=== PATIENT | female | born 1995 | race Caucasian/White ===

== ENCOUNTER → 2017-04-07 | Outpatient (CLI) | payer OTHER | END | disposition home or self-care (01) | LOC: C.MAMM 13:57 | PROVIDERS: ATTEND Internal Medicine | DX: N91.2 Amenorrhea, unspecified (principal) ==

== ENCOUNTER 2018-10-10 13:55 | Inpatient (IN) ==
[2018-10-10] MEDS ORDERED: SODIUM CHLORIDE 0.9% 1000ML 1,000 ML IV ONE (14:10)
[2018-10-10] MEDS ORDERED: KETOROLAC TROMETHAMINE 15 MG/ML VIAL IV STA (14:15)
[2018-10-10 14:56] LABS: Basophils # (auto) 0.06 K/uL (0-0.2); Basophils % (auto) 1.1 %; Eosinophils # (auto) 0.13 K/uL (0-0.5); Eosinophils % (auto) 2.3 %; Hematocrit (blood only) 39.7 % (37-47); Hemoglobin 13.8 g/dL (12.0-16.0); Immature Granulocytes # (auto) 0.02 K/uL (0.00-0.02); Immature Granulocytes % (auto) 0.4 %; Lymphocytes # (auto) 1.71 K/uL (1.2-3.4); Lymphocytes % (auto) 30.6 %; Mean Corpuscular Hemoglobin 30.3 pg (25-34); Mean Corpuscular Hgb Conc 34.8 g/dL (32-36); Mean Corpuscular Volume 87.1 fL (80-100); Mean Platelet Volume 10.7 fL (7.4-10.4); Monocytes # (auto) 0.35 K/uL (0.11-0.59); Monocytes % (auto) 6.3 %; Neutrophils # (auto) 3.32 K/uL (1.4-6.5); Neutrophils % (auto) 59.3 %; Platelet Count 208 K/uL (130-400); RDW Coefficient of Variation 12.3 % (11.5-14.5); RDW Standard Deviation 39.1 fL (36.4-46.3); Red Blood Count 4.56 M/uL (4.2-5.4); White Blood Count 5.59 K/uL (4.8-10.8)
[2018-10-10 15:00] LABS: Appearance Urine Clear (Clear); Bilirubin Urine Negative (Negative); Blood Urine Negative (Negative); Color Urine Yellow; Glucose Urine UA Negative (Negative); Ketones Urine Negative (Negative); Leukocyte Esterase Urine Negative (Negative); Nitrite Urine Negative (Negative); Protein Urine Negative (Negative); Specific Gravity Urine 1.013 (1.000-1.030); Urobilinogen Urine Negative (Negative); pH Urine 6.5 (4.5-7.5)
[2018-10-10 15:10] LABS: Pregnancy Test, Serum Negative (Negative)
[2018-10-10 15:13] LABS: Albumin Level 3.4 gm/dl (3.4-5.0); BUN Creatinine Ratio 13.2 (10-20); Est GFR (African American) 138.7; Est GFR (Non-African American) 119.7; Potassium 3.8 mmol/L (3.5-5.1)
[2018-10-10 15:16] LABS: Albumin Globulin Ratio 0.8 (0.9-2); Bilirubin,Total 0.5 mg/dl (0.2-1); Globulin 4.3 gm/dl (2.5-4.0); Total Protein 7.7 gm/dl (6.4-8.2)
[2018-10-10] MEDS ORDERED: IOVERSOL 100ml IV PRN (15:29)
--- NOTE | 2018-10-10 15:38 | CT Scan Report ---
CT abd pelvis IV con only CLINICAL HISTORY: 23 years-old Female presenting with RLQ pain, nausea, fevers. TECHNIQUE: Multidetector CT of the abdomen and pelvis was performed after the administration of intra venous contrast. IV contrast: 93 mL of Optiray 320. One or more dose lowering techniques were used co nsistent with the principles of ALARA (as low as reasonably achievable), including automatic exposure control, mA or kV adjustment to individual patient size, and/or use of iterative reconstruction. COMPARISON: None. CT DOSE (mGy.cm): The estimated cumulative dose is 248.66 mGy.cm. FINDINGS: Trustee Of Estate topogram: Unremarkable. Lung bases: Normal heart size. No pericardial or pleural effusion. No focal infiltrate or nodule at t he lung bases. Liver: Normal morphology. No liver lesion. Patent hepatic vasculature. Biliary: No intrahepatic or extrahepatic biliary ductal dilatation. Gallbladder decompressed. Pancreas: Normal. Spleen: Normal. Adrenal glands: Normal. Kidneys and ureters: Normal. No hydronephrosis. Bladder: Incompletely evaluated secondary to underdistention. Pelvic organs: Uterus and ovaries normal. Bowel: Fluid filled distended appendix with mucosal hyperemia. Periappendiceal fluid and fat infiltra tion. There is indistinctness of the appendiceal wall towards the appendiceal base. No well-circumscr ibed fluid collection adjacent to the appendix to suggest abscess. Mild wall thickening of the transi ting small bowel likely on a secondarily reactive basis. No bowel obstruction. Peritoneal cavity: Trace fluid in the pelvis and right lower quadrant. No rim-enhancing fluid collect ion to suggest abscess. Peritoneal thickening and enhancement in the right lower quadrant. No extralu chris or free intraperitoneal gas. Lymph nodes: No enlarged lymph nodes in the abdomen or pelvis. Vasculature: Aorta and IVC patent and normal in caliber. Abdominal wall: Normal. Musculoskeletal: Normal. IMPRESSION: 1. Acute appendicitis with moderate to severe right lower quadrant inflammatory changes. Findings al so suspicious for mucosal discontinuity toward the appendiceal base, which raises concern for wall ne crosis and a developing perforation. No abscess at this time. Surgical consultation is necessary. The report will be called/faxed according to standard departmental protocol for a critical finding. Electronically signed by: Medhat Shelby M.D. 10/10/2018 3:37 PM
[2018-10-10] MEDS ORDERED: cefOXitin 2,000 MG/60 ML BAG IV STA (16:26)
[2018-10-10] MEDS ORDERED: BUPIVACAINE 0.5 % 5 MG/1 ML MPF 30ML VIAL ONE (16:48)
--- NOTE | 2018-10-10 17:11 | Anesthesiology Consultation ---
Date of Service October 10, 2018 Assessment & Plan (1) Encounter for pre-operative examination: Chart Review Chart Review: Acceptable Risk for Surgery and Patient NOT seen in Pre Admission Testing Consults Requested none History Surgery Operation Date: 10/10/18 18:15 Proposed Procedures p Laparoscopic Appendectomy - Erin Hernandez MD Height/Weight Height: 5 ft 6 in Weight: 57.4 kg Allergies Allergy/AdvReac Type Severity Reaction Status Date / Time No Known Allergies Allergy Unverified 10/10/18 14:04 Medications Home Medications Medication Instructions Recorded Confirmed Last Taken albuterol sulfate 2 puff INHALATION DIRECTED PRN 10/10/18 10/10/18 Unknown buspirone 10 mg PO BID 10/10/18 10/10/18 10/10/18 fluticasone propionate [Flovent 2 puff INHALATION DIRECTED PRN 10/10/18 10/10/18 Unknown HFA] ibuprofen [Advil Liqui-Gel] 200 mg PO QID PRN 10/10/18 10/10/18 10/09/18 400mg norgestimate-ethinyl estradiol 1 tab PO QAM 10/10/18 10/10/18 10/10/18 [Tri-Sprintec (28)] Active Medications Generic Name Dose Route Start Last Admin Trade Name Freq PRN Reason Stop Dose Admin Ioversol 93 ml 10/10/18 15:29 10/10/18 15:29 Optiray 320 100ml IV 10/14/18 15:28 93 ml ONCE PRN Administration Interaction Checking Past Medical History Medical History Asthma Acute appendicitis (Acute) Anxiety Exercise / Class Metabolic Activity II 4-5 Yardwork/Stairs/Walk up hill Past Family History Family History Aunt Ovarian cyst Past Anesthesia History No Hx of Anesthesia Complications and No Family Hx of Anesthesia Complications History of PONV No Hx of PONV and No Hx of Motion Sickness Social History Smoking Status: Never smoker Do You Dip or Chew Tobacco: No Hx Alcohol Use: Yes alcohol intake frequency: a few times a week Physical Exam Vital Signs Last Vital Signs Temp 36.8 C 10/10/18 13:57 Pulse 70 08/31/19 18:00 Resp 19 10/10/18 18:00 BP 110/84 10/10/18 18:00 Pulse Ox 85 L 10/10/18 15:30 Testing Laboratory Results 10/10/18 Unknown 10/10/18 Unknown Urine Color Yellow 10/10/18 14:40 Urine Appearance Clear (Clear) 10/10/18 14:40 Urine pH 6.5 (4.5-7.5) 10/10/18 14:40 Ur Specific Schneider 1.013 (1.000-1.030) 10/10/18 14:40 Urine Protein Negative (Negative) 10/10/18 14:40 Urine Glucose (UA) Negative (Negative) 10/10/18 14:40 Urine Ketones Negative (Negative) 10/10/18 14:40 Urine Nitrite Negative (Negative) 10/10/18 14:40 Ur Leukocyte Esterase Negative (Negative) 10/10/18 14:40
--- NOTE | 2018-10-10 18:02 | History & Physical Report ---
Date of Service October 10, 2018 Assessment & Plan (1) Acute appendicitis: 23 yr old with acute appendicitis with CT scan suggesting possible perforation of tip. Consented for laparoscopic appendectomy - risks of bleeding, infection, conversion to open, postop ileus/ abscess all discussed with pt and her aunt. Also discussed expected recovery/ risks with parents via telephone. Consent signed. For OR tonight. Present on Admission?: Yes History of Present Illness Chief Complaint: abdominal pain Primary Care Provider: 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 Had some nausea and vomiting Fri/ . Seen and given antibiotics for presumed urinary infection. Pain persisted and localized to right lower quadrant, moderate intensity, worse with movement, no relieving factors except pain meds, associated with low grade fever to 100/ chills. Came to the ER and CT scan shows acute appendicitis. Last ate around 1:30 - did note anorexia over the last few days. No change in bowel habits. No similar symptoms in the past. Allergies Allergy/AdvReac Type Severity Reaction Status Date / Time No Known Allergies Allergy Unverified 10/10/18 14:04 Home Medications Home Medications Medication Instructions Recorded Confirmed Type albuterol sulfate 2 puff INHALATION DIRECTED PRN 10/10/18 10/10/18 History buspirone 10 mg PO BID 10/10/18 10/10/18 History fluticasone propionate [Flovent 2 puff INHALATION DIRECTED PRN 10/10/18 10/10/18 History HFA] ibuprofen [Advil Liqui-Gel] 200 mg PO QID PRN 10/10/18 10/10/18 History norgestimate-ethinyl estradiol 1 tab PO QAM 10/10/18 10/10/18 History [Tri-Sprintec (28)] Past Med/Surg History Medical History Asthma Acute appendicitis (Acute) Anxiety Family History Aunt Ovarian cyst Social History Preferred Language: Turkish Communication Ability: Effective Baseball Club Manager Required: No Beliefs That Will Affect Care: None Current Living Situation: Other Current Living Situation Comment: [employer] student, roommates Other Information That Helps Us Care for You: No Feels Safe at Home: Yes Safety Concerns: Feels Safe At This Time Smoking Status: Never smoker Do You Dip or Chew Tobacco: No ; Second Hand Exposure: No ; Tobacco Cessation Education Requested by Patient: No Hx Alcohol Use: Yes Hx Substance Use: Yes substance use type: marijuana Last Used Substance Other:: over 2 weeks ago Review of Systems Review of Systems: All systems reviewed & are unremarkable except as noted in HPI & below Physical Exam Constitutional: WD/WN, vitals as above Eyes: PERRL, conjunctivae normal, anicteric sclerae Neck: trachea midline Respiratory: normal respiratory effort, lungs clear to auscultation Cardiovascular: RRR, no murmur, no edema Gastrointestinal (Abdomen): Inspection/Auscultation: abdomen normal to inspection and + abdomen distended (mild) Percussion/Palpation: + abdomen tender (right lower quadrant,no guarding (but did recieve pain meds)) and abdomen soft; no guarding, no hernia and no abdominal mass Neurologic: moves all extremities Psychiatric: A+Ox3, euthymic affect Results & Data Vital Signs (Past 12 Hours) Vital Signs Temp Pulse Resp BP Pulse Ox 10/10/18 17:30 66 18 125/76 10/10/18 17:11 62 17 112/72 10/10/18 17:00 70 17 10/10/18 16:30 74 17 10/10/18 16:00 59 L 19 10/10/18 15:30 75 28 H 85 L 10/10/18 15:19 74 14 121/71 96 10/10/18 15:11 57 L 21 99/54 L 100 10/10/18 15:09 54 L 18 100 10/10/18 13:57 36.8 C 73 16 122/79 100 Laboratory Results CBC normal Diagnostic Findings CT scan abd/ pelvis: IMPRESSION: 1. Acute appendicitis with moderate to severe right lower quadrant inflammatory changes. Findings also suspicious for mucosal discontinuity toward the appendiceal base, which raises concern for wall necrosis and a developing perfor ation. No abscess at this time. Surgical consultation is necessary. (1) Acute appendicitis Acute appendicitis type: unspecified acute appendicitis type Qualified Code(s): K35.80 - Unspecified acute appendicitis
[2018-10-10] MEDS ORDERED: DEXAMETHASONE SOD INJ 4 MG/ML VIAL ONE (18:24)
[2018-10-10] MEDS ORDERED: SUCCINYLCHOLINE CHLORIDE 20 MG/ML 10 ML VIAL ONE (18:24)
[2018-10-10] MEDS ORDERED: PROPOFOL IV EMULSION 10 MG/ML 20 ML VIAL IV ONE (18:24)
[2018-10-10] MEDS ORDERED: NEOSTIGMINE METHYLSULFATE 5 MG/5 ML SYR ONE (18:24)
[2018-10-10] MEDS ORDERED: ONDANSETRON INJ 2 MG/ML 2 ML VIAL ONE (18:24)
[2018-10-10] MEDS ORDERED: GLYCOPYRROLATE 0.2 MG/ML VIAL ONE (18:24)
[2018-10-10] MEDS ORDERED: ROCURONIUM BROMIDE 10 MG/ML 5 ML VIAL ONE (18:24)
[2018-10-10] MEDS ORDERED: MIDAZOLAM HCL 1 MG/ML 2ML VIAL ONE (18:25)
[2018-10-10] MEDS ORDERED: fentaNYL citrate 100 MCG/2 ML VIAL ONE (18:25)
[2018-10-10] MEDS ORDERED: ePHEDrine sulfate 50 MG/ML AMP IV PRN (19:12)
[2018-10-10] MEDS ORDERED: HYDROmorphone INJ 1 MG/ML SYRINGE IV PRN (19:12)
[2018-10-10] MEDS ORDERED: ONDANSETRON INJ 2 MG/ML 2 ML VIAL IV PRN (19:12)
[2018-10-10] MEDS ORDERED: fentaNYL citrate 100 MCG/2 ML VIAL IV PRN (19:12)
[2018-10-10] MEDS ORDERED: ATROPINE SULFATE 0.1 MG/ML 10ML SYR IV PRN (19:12)
[2018-10-10] MEDS ORDERED: PROMETHAZINE HCL 12.5 MG in SODIUM CHLORIDE 0.9% 50 ML IV PRN (19:12)
--- NOTE | 2018-10-10 20:00 | Operative Report ---
Post Operative Report Pre & Post Diagnosis Operation Date: 10/10/18 18:15 Pre-Op Diagnosis: Acute appendicitis Post-Op Diagnosis: Acute appendicitis Procedure Operation Date: 10/10/18 18:15 Actual Procedures p Laparoscopic Appendectomy(Not Applicable) - Erin Hernandez MD Surgeon Erin Hernandez MD Cable Worker Helper none Estimated Blood Loss 5 Findings See Below (near gangrenous appendicitis walled off in RLQ by bowel/ omentum) Specimens appendix Description of Procedure see operative report I attest to the content of the Intraoperative Record and any orders documented therein. Any exceptions are noted below.
--- NOTE | 2018-10-10 20:10 | Anesthesiology Progress Note ---
Date of Service October 10, 2018 Anesthesia Post Procedure Vital Signs Vital Signs: Temp Pulse Resp BP Pulse Ox 10/10/18 18:00 70 19 110/84 10/10/18 17:30 66 18 125/76 10/10/18 17:11 62 17 112/72 10/10/18 17:00 70 17 10/10/18 16:30 74 17 10/10/18 16:00 59 L 19 10/10/18 15:30 75 28 H 85 L 10/10/18 15:19 74 14 121/71 96 10/10/18 15:11 57 L 21 99/54 L 100 10/10/18 15:09 54 L 18 100 10/10/18 13:57 36.8 C 73 16 122/79 100 Pain Intensity Abdomen: Pain Intensity: 4 Transfer of Care Handoff Completed per policy Notes Mental Status: alert / awake / arousable and participated in evaluation Patient Amnestic to Procedure: Yes Nausea / Vomiting: adequately controlled Pain: adequately controlled Airway Patency, RR, SpO2: stable & adequate BP & HR: stable & adequate Hydration State: stable & adequate Anesthetic Complications: no major complications apparent and Pt Satisfied with anesthetic care
--- NOTE | 2018-10-10 20:30 | Operative Report ---
DATE OF OPERATION: 10/10/2018 PREOPERATIVE DIAGNOSIS: Acute appendicitis. POSTOPERATIVE DIAGNOSIS: Acute near gangrenous appendicitis. OPERATIVE PROCEDURE: Laparoscopic appendectomy. SURGEON: Erin Hernandez MD. DRUG COORDINATOR: None. ANESTHESIA: General endotracheal anesthesia. ESTIMATED BLOOD LOSS: 5 mL. IV FLUIDS: 1100 mL. URINE OUTPUT: Not applicable. SPECIMENS: Appendix. COMPLICATIONS: None. OPERATIVE FINDINGS: Near gangrenous appendicitis walled off in right lower quadrant between anterior abdominal wall and loops of bowel and omentum. INDICATIONS: Ms. Vásquez is a 23-year-old woman who had abdominal pain going on for about a week. She was initially diagnosed with a urinary tract infection and treated with antibiotics. Her pain persisted and localized to the right lower quadrant. She came in to the Emergency Room and a CT scan showed marked inflammatory changes in the right lower quadrant. She was counseled regarding the need for appendectomy. DESCRIPTION OF PROCEDURE: The patient received cefoxitin preoperatively. After placement of sequential compression devices, she underwent induction of general endotracheal anesthesia. She was positioned with her left arm tucked. Her abdomen was sterilely prepped and draped. She was positioned in Trendelenburg. A supraumbilical incision was made and the Veress needle placed into the peritoneal cavity. This was tested with the saline drop test. Initial pressure was 1 mmHg and this was taken up to 15 mmHg. A 12 mm trocar was placed. Two additional trocars were placed under direct vision, a 5 in the left lower quadrant and a 5 in the midline pubic area. Initial inspection revealed omentum and bowel to be socked into the right lower quadrant. These were carefully peeled away revealing a near gangrenous appendix. The appendix was followed up approximately with clips being taken on some mesenteric attachments. Ultimately, the mesentery was able to be divided with a firing of the CHANELL purple load stapler. The appendix was continued to be followed, it was quite necrotic. It was followed to the base of the cecum where it did appear to have less inflammation. This area was divided with a firing of the CHANELL purple load stapler. The appendix was then placed in an Endobag and removed through the umbilical incision. The abdomen was irrigated and suctioned clear multiple times using about a liter of fluid. There was no evidence of any bleeding noted. Pneumoperitoneum was released. The trocars were removed. The umbilical fascia was closed with 0 Vicryl stitches placed anteriorly. The skin of all 3 incisions closed with running subcuticular 4-0 Vicryl suture. Steri-Strips and sterile dressings were applied. She was awakened from anesthesia and taken to recovery in stable condition. I attest to the content of the Intraoperative Record and any orders documented therein. Any exception s are noted below.
[2018-10-10] MEDS ORDERED: FLUTICASONE HFA 110MCG INHALER INH PRN (21:08)
[2018-10-10] MEDS ORDERED: ALBUTEROL HFA 8 GM INHALER INH PRN (21:08)
[2018-10-10] MEDS ORDERED: MoRPHine SULFATE 2 MG/ML CARP IV PRN ×2 (21:08)
[2018-10-10] MEDS ORDERED: HYDROCODONE/ACETAMOPHEN 5/325MG TAB PO PRN (21:08)
[2018-10-10] MEDS ORDERED: ACETAMINOPHEN 325 MG TAB PO PRN (21:08)
[2018-10-10] MEDS ORDERED: IBUPROFEN 200 MG TAB PO PRN (21:08)
[2018-10-10] MEDS ORDERED: KETOROLAC 30 MG/ML VIAL IV PRN (21:08)
[2018-10-10] MEDS: ONDANSETRON INJ 2 MG/ML 2 ML VIAL IV PRN (21:34)
[2018-10-10] MEDS: MoRPHine SULFATE 2 MG/ML CARP IV PRN (21:35)
--- NOTE | 2018-10-10 21:49 | Emergency Department Note ---
Entered by Ilsa Nieto acting as a scribe for History of Present Illness General Chief complaint: Abdominal Pain Stated complaint: LOWER STOMACH PAIN Time Seen by Provider: 10/10/18 14:04 Source: patient Limitations: no limitations History of Present Illness Onset (ago): day(s) 6 Location: abdomen Pain Consistency: + other (persistent ) Maximum Pain Intensity: 4 Quality: + other (pain) Relieved By: + other (antibiotics) Associated symptoms: + denies other symptoms (vaginal symptoms) and + nausea/vomiting (complains of nausea, denies vomiting ) The patient is a 23 year old female who presents to the Emergency Room with complaints of persistent right lower abdominal pain that began 6 days ago. She reports that the pain was most severe six days ago, noting that she had diarrhea and a fever then. The patient reports that she began to feel nauseous 5 days ago. She states that she saw her PCP at [facility] 5 days ago, and was given Levaquin for a suspected bladder infection. The patient reports that she felt some relief after she started the antibiotics, but was taken off of the antibiotics yesterday because her cultures from [facility] were negative for infection markers. The patient complains of dysuria. She denies any current nausea. The patient denies any vomiting and vaginal symptoms. She notes that her LKNP began 5 days ago, noting that the first day is usually painful. The patient notes a history of anxiety, stating that she takes Buspar. Home Medications Home Medications Medication Instructions Recorded Confirmed Type albuterol sulfate 2 puff INHALATION DIRECTED PRN 10/10/18 10/10/18 History buspirone 10 mg PO BID 10/10/18 10/10/18 History fluticasone propionate [Flovent 2 puff INHALATION DIRECTED PRN 10/10/18 10/10/18 History HFA] ibuprofen [Advil Liqui-Gel] 200 mg PO QID PRN 10/10/18 10/10/18 History norgestimate-ethinyl estradiol 1 tab PO QAM 10/10/18 10/10/18 History [Tri-Sprintec (28)] Allergies Allergy/AdvReac Type Severity Reaction Status Date / Time No Known Allergies Allergy Unverified 10/10/18 14:04 Past Med/Surg History Medical History Asthma Acute appendicitis (Acute) Anxiety Family History Aunt Ovarian cyst Social History Preferred Language: Bulgarian Communication Ability: Effective [employer]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 and A total of 10 systems reviewed and were otherwise negative Physical Exam Vital Signs Vital Signs - 24 hr 10/10/18 13:57 10/10/18 15:09 10/10/18 15:11 Temperature 36.8 C Temperature Source Oral Sepsis Recent Fever Within 48 Hours No Sepsis New/Unexplained Change in Mental Status No Sepsis Action Taken by Nursing No Action Required Pulse Rate 73 54 L 57 L Pulse Rate [Right Finger] Pulse Rate from SpO2 Sensor 57 L Pulse Rhythm Regular Pulse Rhythm [Right Finger] Pulse Strength [Right Finger] Respiratory Rate 16 18 21 Respiratory Effort / Characteristics Non-Labored Respiratory Depth Normal Respiratory Pattern Blood Pressure 122/79 99/54 L Blood Pressure [Left Arm] Blood Pressure Mean 93 69 Blood Pressure Mean [Left Arm] Blood Pressure Position [Left Arm] Pulse Oximetry 100 100 100 Oxygen Delivery Method Room Air Oxygen Flow Rate 10/10/18 15:19 10/10/18 15:30 10/10/18 16:00 Temperature Temperature Source Sepsis Recent Fever Within 48 Hours Sepsis New/Unexplained Change in Mental Status Sepsis Action Taken by Nursing Pulse Rate 74 75 59 L Pulse Rate [Right Finger] Pulse Rate from SpO2 Sensor 74 188 H Pulse Rhythm Pulse Rhythm [Right Finger] Pulse Strength [Right Finger] Respiratory Rate 14 28 H 19 Respiratory Effort / Characteristics Respiratory Depth Respiratory Pattern Blood Pressure 121/71 Blood Pressure [Left Arm] Blood Pressure Mean 87 Blood Pressure Mean [Left Arm] Blood Pressure Position [Left Arm] Pulse Oximetry 96 85 L Oxygen Delivery Method Oxygen Flow Rate 10/10/18 16:30 10/10/18 17:00 10/10/18 17:11 Temperature Temperature Source Sepsis Recent Fever Within 48 Hours Sepsis New/Unexplained Change in Mental Status Sepsis Action Taken by Nursing Pulse Rate 74 70 62 Pulse Rate [Right Finger] Pulse Rate from SpO2 Sensor Pulse Rhythm Pulse Rhythm [Right Finger] Pulse Strength [Right Finger] Respiratory Rate 17 17 17 Respiratory Effort / Characteristics Respiratory Depth Respiratory Pattern Blood Pressure 112/72 Blood Pressure [Left Arm] Blood Pressure Mean 85 Blood Pressure Mean [Left Arm] Blood Pressure Position [Left Arm] Pulse Oximetry Oxygen Delivery Method Oxygen Flow Rate 10/10/18 17:30 10/10/18 18:00 10/10/18 20:00 Temperature 36.8 C Temperature Source Temporal Artery Scan Sepsis Recent Fever Within 48 Hours Sepsis New/Unexplained Change in Mental Status Sepsis Action Taken by Nursing Pulse Rate 66 70 Pulse Rate [Right Finger] 69 Pulse Rate from SpO2 Sensor Pulse Rhythm Pulse Rhythm [Right Finger] Regular Pulse Strength [Right Finger] Normal Respiratory Rate 18 19 18 Respiratory Effort / Characteristics Non-Labored Spontaneous Respiratory Depth Normal Respiratory Pattern Regular Blood Pressure 125/76 110/84 Blood Pressure [Left Arm] 108/69 Blood Pressure Mean 92 92 Blood Pressure Mean [Left Arm] 82 Blood Pressure Position [Left Arm] Sitting Pulse Oximetry 100 Oxygen Delivery Method Oxymask Oxygen Flow Rate 10 10/10/18 20:10 10/10/18 20:20 10/10/18 20:30 Temperature Temperature Source Sepsis Recent Fever Within 48 Hours Sepsis New/Unexplained Change in Mental Status Sepsis Action Taken by Nursing Pulse Rate Pulse Rate [Right Finger] 60 66 58 L Pulse Rate from SpO2 Sensor Pulse Rhythm Pulse Rhythm [Right Finger] Regular Regular Regular Pulse Strength [Right Finger] Normal Normal Normal Respiratory Rate 18 18 18 Respiratory Effort / Characteristics Non-Labored Spontaneous Non-Labored Spontaneous Non-Labored Spontaneous Respiratory Depth Normal Normal Normal Respiratory Pattern Regular Regular Regular Blood Pressure Blood Pressure [Left Arm] 102/73 112/68 93/67 L Blood Pressure Mean Blood Pressure Mean [Left Arm] 82 82 75 Blood Pressure Position [Left Arm] Sitting Sitting Pulse Oximetry 100 100 100 Oxygen Delivery Method Oxymask Oxymask Room Air Oxygen Flow Rate 10 5 10/10/18 20:40 10/10/18 20:50 Temperature 36.7 C 37.2 C Temperature Source Temporal Artery Scan Oral Sepsis Recent Fever Within 48 Hours Sepsis New/Unexplained Change in Mental Status Sepsis Action Taken by Nursing Pulse Rate Pulse Rate [Right Finger] 52 L 55 L Pulse Rate from SpO2 Sensor Pulse Rhythm Pulse Rhythm [Right Finger] Regular Pulse Strength [Right Finger] Normal Respiratory Rate 18 16 Respiratory Effort / Characteristics Non-Labored Spontaneous Respiratory Depth Normal Respiratory Pattern Regular Blood Pressure Blood Pressure [Left Arm] 97/65 L 107/72 Blood Pressure Mean Blood Pressure Mean [Left Arm] 75 83 Blood Pressure Position [Left Arm] Lying Pulse Oximetry 100 100 Oxygen Delivery Method Room Air Room Air Oxygen Flow Rate GENERAL: Awake, alert, well-appearing, in no distress HENT: Normocephalic, atraumatic. Oropharynx with dry mucous membranes and otherwise unremarkable. EYES: Normal conjunctiva. Sclera non-icteric. NECK: Supple. No nuchal rigidity. FROM. No JVD. RESPIRATORY: CTAB. CARDIAC: Regular rate, normal rhythm. Extremities warm and well perfused. Pulses equal. ABDOMEN: Soft, non-distended. Mild RLQ tenderness. No rebound or guarding. No masses. RECTAL: Deferred. MUSCULOSKELETAL: Chest examination reveals no tenderness. The back is symmetrical on inspection without obvious abnormality. There is no CVA tenderness to palpation. No joint edema. LOWER EXTREMITIES: Calves are equal size bilaterally and non-tender. No edema. No discoloration. NEURO: Normal sensorium. No sensory or motor deficits noted. SKIN: No rash or jaundice noted. Course 1409: The patient was evaluated in room B09. A complete history and physical exam was performed. 1615: I updated the patient on her results and the plan. She was in agreement with the plan. 1621: I spoke with Dr. Erin Hernandez, [facility] general surgery, about the patient's case. She will further evaluate the patient. Consultations Consultation #1: I spoke with Dr. Erin Hernandez, [facility] general surgery, about the patient's case. She will further evaluate the patient. Time: 16:21 Administered Medications Ioversol (Optiray 320 100ml) 93 ml IV ONCE PRN PRN Reason: Interaction Checking Stop: 10/14/18 15:28 Last Admin: 10/10/18 15:29 Dose: 93 ml Documented by: [id number] Morphine Sulfate (Morphine Sulfate) 2 mg IV Q3H PRN PRN Reason: MODERATE Pain (Scale 4,5,6) Stop: 10/24/18 21:07 Last Admin: 10/10/18 21:35 Dose: 2 mg Documented by: [id number] Ondansetron HCl (Zofran) 4 mg IV Q4H PRN PRN Reason: Nausea And Vomiting Stop: 11/09/18 21:07 Last Admin: 10/10/18 21:34 Dose: 4 mg Documented by: [id number] Discontinued Medications Sodium Chloride (Nss 1000ml) 1,000 mls @ 999 mls/hr IV .Q1H1M ONE Stop: 10/10/18 15:10 Last Infusion: 10/10/18 15:56 Dose: 0 mls/hr Documented by: [id number] Admin: 10/10/18 14:44 Dose: 999 mls/hr Documented by: [id number] Cefoxitin Sodium (Mefoxin) 2,000 mg in 60 mls @ 100 mls/hr IV NOW STA Stop: 10/10/18 17:01 Last Infusion: 10/10/18 17:31 Dose: 0 mls/hr Documented by: [id number] Admin: 10/10/18 16:51 Dose: 100 mls/hr Documented by: [id number] Ketorolac Tromethamine (Toradol) 15 mg IV NOW STA Stop: 10/10/18 14:16 Last Admin: 10/10/18 14:44 Dose: 15 mg Documented by: [id number] Medical Decision Making Differential Diagnosis Etiologies such as biliary colic, cholecystitis, hepatitis, perihepatitis, alvarado creatitis, cardiac disease, pancreatitis, gastritis, peptic ulcer disease, appendicitis, ovarian cyst, ovarian torsion, ectopic , pelvic inflammatory disease, cystitis, diverticulitis, mesenteric ischemia, inflammatory bowel disease, ileus, bowel obstruction, aortic pathology, shingles, as well as others were considered. Medical Records Attestation: I reviewed the patient's medical records. Home Medications Current Medication List: was personally reviewed by me Laboratory Data Attestation: I reviewed the patient's lab results. Result diagrams: 10/10/18 Unknown 10/10/18 Unknown Lab Results 10/10/18 Range/Units 14:40 Urine Color Yellow Urine Appearance Clear (Clear) Urine pH 6.5 (4.5-7.5) Ur Specific Henderson 1.013 (1.000-1.030) Urine Protein Negative (Negative) Urine Glucose (UA) Negative (Negative) Urine Ketones Negative (Negative) Urine Blood Negative (Negative) Urine Nitrite Negative (Negative) Urine Bilirubin Negative (Negative) Urine Urobilinogen Negative (Negative) Ur Leukocyte Esterase Negative (Negative) Imaging Data Radiologist's Impression: Radiology results as stated below per my review and the radiologist's interpretation: CT abd pelvis IV con only CLINICAL HISTORY: 23 years-old Female presenting with RLQ pain, nausea, fevers. TECHNIQUE: Multidetector CT of the abdomen and pelvis was performed after the administration of intravenous contrast. IV contrast: 93 mL of Optiray 320. One or more dose lowering techniques were used consistent with the principles of ALARA (as low as reasonably achievable), including automatic exposure control, mA or kV adjustment to individual patient size, and/or use of iterative reconstruction. COMPARISON: None. CT DOSE (mGy.cm): The estimated cumulative dose is 248.66 mGy.cm. FINDINGS: Automatic Beam Warper Tender topogram: Unremarkable. Lung bases: Normal heart size. No pericardial or pleural effusion. No focal i nfiltrate or nodule at the lung bases. Liver: Normal morphology. No liver lesion. Patent hepatic vasculature. Biliary: No intrahepatic or extrahepatic biliary ductal dilatation. Gallbladder decompressed. Pancreas: Normal. Spleen: Normal. Adrenal glands: Normal. Kidneys and ureters: Normal. No hydronephrosis. Bladder: Incompletely evaluated secondary to underdistention. Pelvic organs: Uterus and ovaries normal. Bowel: Fluid filled distended appendix with mucosal hyperemia. Periappendiceal fluid and fat infiltration. There is indistinctness of the appendiceal wall towards the appendiceal base. No well-circumscribed fluid collection adjacent to the appendix to suggest abscess. Mild wall thickening of the transiting small bowel likely on a secondarily reactive basis. No bowel obstruction. Peritoneal cavity: Trace fluid in the pelvis and right lower quadrant. No rim- enhancing fluid collection to suggest abscess. Peritoneal thickening and enhancement in the right lower quadrant. No extraluminal or free intraperitoneal gas. Lymph nodes: No enlarged lymph nodes in the abdomen or pelvis. Vasculature: Aorta and IVC patent and normal in caliber. Abdominal wall: Normal. Musculoskeletal: Normal. IMPRESSION: 1. Acute appendicitis with moderate to severe right lower quadrant inflammatory changes. Findings also suspicious for mucosal discontinuity toward the appendiceal base, which raises concern for wall necrosis and a developing perforation. No abscess at this time. Surgical consultation is necessary. The report will be called/faxed according to standard departmental protocol for a critical finding. Electronically signed by: Medhat Shelby M.D. 10/10/2018 3:37 PM Blood Pressure Blood Pressure Findings: Normal blood pressure Blood Pressure Disposition: did not require urgent referral MDM Narrative The patient is a pleasant 23-year-old woman who presents emergency department with persistent right lower quadrant pain with associated fever that has been ongoing for the past 5 days in the setting of being treated Levaquin by [facility] for possible UTI per hpi. Of note, the patient reports transient improvement but then again worsening of her pain and so presents emergency department today. She additionally reports nausea and decreased appetite. WBC, H/H, platelets wnl. Chemistry without acidosis. LFTs and electrolytes unremarkable. UA negative. CT abdomen pelvis demonstrates moderate to severe right lower quadrant inflammatory changes c/w acute appendicitis. Additionally seen is suspicious mucosal discontinuity toward the appendiceal base that could be c/w wall necrosis and a developing perforation. However, no abscess at this time. She was ordered for cefoxitin. Case was discussed with general surgery, Dr. Hernandez, who will ev aluate the patient and admit to the OR. I did review the findings with the patient and discussed with the patient's mother over the phone who lives several hours away in [place]. Impression & Plan Acute appendicitis, Abdominal pain, RLQ Discharge Plan Visit Data *Final* Discharge Date/Time: 10/10/18 18:23 Chief Complaint: Abdominal Pain Stated Complaint: LOWER STOMACH PAIN ED Provider: Jorgito Reynoso Discharge Problem: Acute appendicitis, Abdominal pain, RLQ Patient Disposition: Still a Patient Discharge Instructions Interventions: ED Discharge Assessment Last Done: 10/10/18 18:23 Discharge Problem: Acute appendicitis Qualifiers: Acute appendicitis type: unspecified acute appendicitis type Qualified Code(s): K35.80 - Unspecified acute appendicitis The scribe's documentation has been prepared under my direction and personally reviewed by me in its entirety. I confirm that the note above accurately reflects all work, treatment, procedures, and medical decision making performed by me.
[2018-10-11] MEDS: LACTATED RINGER'S 1,000 ML IV SCH ×3 (02:57→21:07)
[2018-10-11] MEDS: ONDANSETRON INJ 2 MG/ML 2 ML VIAL IV PRN (03:01)
[2018-10-11] MEDS: MoRPHine SULFATE 2 MG/ML CARP IV PRN (03:02)
[2018-10-11] MEDS: HYDROCODONE/ACETAMOPHEN 5/325MG TAB PO PRN ×3 (08:36→20:13)
--- NOTE | 2018-10-11 09:03 | Anesthesiology Progress Note ---
Date of Service October 11, 2018 Anesthesia Post Procedure Vital Signs Vital Signs: Temp Pulse Pulse Resp BP BP BP 10/11/18 07:13 37.5 C 54 L 15 106/68 10/11/18 02:54 37.1 C 59 L 16 105/68 10/11/18 00:20 10/11/18 00:00 37.5 C 53 L 16 100/63 10/10/18 22:55 37.5 C 59 L 16 101/64 10/10/18 21:50 37.6 C H 54 L 16 98/64 L 10/10/18 21:22 36.7 C 54 L 16 102/68 10/10/18 20:50 37.2 C 55 L 16 107/72 10/10/18 20:40 36.7 C 52 L 18 97/65 L 10/10/18 20:30 58 L 18 93/67 L 10/10/18 20:20 66 18 112/68 10/10/18 20:10 60 18 102/73 10/10/18 20:00 36.8 C 69 18 108/69 10/10/18 18:00 70 19 110/84 10/10/18 17:30 66 18 125/76 10/10/18 17:11 62 17 112/72 10/10/18 17:00 70 17 10/10/18 16:30 74 17 10/10/18 16:00 59 L 19 10/10/18 15:30 75 28 H 10/10/18 15:19 74 14 121/71 10/10/18 15:11 57 L 21 99/54 L 10/10/18 15:09 54 L 18 10/10/18 13:57 36.8 C 73 16 122/79 Pulse Ox Pulse Ox 10/11/18 07:13 98 10/11/18 02:54 97 10/11/18 00:20 99 10/11/18 00:00 99 10/10/18 22:55 96 10/10/18 21:50 94 10/10/18 21:22 100 10/10/18 20:50 100 10/10/18 20:40 100 10/10/18 20:30 100 10/10/18 20:20 100 10/10/18 20:10 100 10/10/18 20:00 100 10/10/18 18:00 10/10/18 17:30 10/10/18 17:11 10/10/18 17:00 10/10/18 16:30 10/10/18 16:00 10/10/18 15:30 85 L 10/10/18 15:19 96 10/10/18 15:11 100 10/10/18 15:09 100 10/10/18 13:57 100 Pain Intensity Abdomen: Pain Intensity: 4 Notes Mental Status: alert / awake / arousable Patient Amnestic to Procedure: Yes Nausea / Vomiting: adequately controlled Pain: adequately controlled Airway Patency, RR, SpO2: stable & adequate BP & HR: stable & adequate Hydration State: stable & adequate Anesthetic Complications: no major complications apparent
--- NOTE | 2018-10-11 09:54 | Surgery Progress Note ---
Date of Service October 11, 2018 Assessment & Plan (1) Acute appendicitis: s/p lap appy for acute near gangrenous appendicitis. Will keep in hospital for IV abx for another 24 hrs then plan to convert to PO abx on discharge. Advance diet as tolerated (had dilated bowel c/w mild ileus on presentation so will advance slowly). Pain control with pain meds and toradol as needed. Increase activity. Subjective Pt doing well. She is sore and is taking the pain meds which help. No nausea or vomiting. Passing flatus. Had some apple juice this morning. Physical Exam Constitutional: WD/WN, vitals as above Respiratory: normal respiratory effort, lungs clear to auscultation Cardiovascular: RRR, no murmur, no edema Gastrointestinal (Abdomen): Inspection/Auscultation: abdomen normal to inspection and normal bowel sounds Percussion/Palpation: + abdomen tender and abdomen soft at incisions, dressings dry Neurologic: moves all extremities Psychiatric: A+Ox3, euthymic affect Results & Data Vital Signs (Past 12 Hours) Vital Signs Temp Pulse Resp BP BP Pulse Ox Pulse Ox 10/11/18 07:13 37.5 C 54 L 15 106/68 98 10/11/18 02:54 37.1 C 59 L 16 105/68 97 10/11/18 00:20 99 10/11/18 00:00 37.5 C 53 L 16 100/63 99 10/10/18 22:55 37.5 C 59 L 16 101/64 96 (1) Acute appendicitis Acute appendicitis type: unspecified acute appendicitis type Qualified Code(s): K35.80 - Unspecified acute appendicitis
[2018-10-11] MEDS ORDERED: Nursing to Pharmacy Communication ONE (10:55)
[2018-10-12] MEDS: HYDROCODONE/ACETAMOPHEN 5/325MG TAB PO PRN (03:08)
[2018-10-12] MEDS: ONDANSETRON INJ 2 MG/ML 2 ML VIAL IV PRN (03:12)
[2018-10-12] MEDS: LACTATED RINGER'S 1,000 ML IV SCH (07:06)
--- NOTE | 2018-10-12 09:43 | Surgery Progress Note ---
Date of Service October 12, 2018 Assessment & Plan (1) Acute appendicitis: Postoperative day #2, status post laparoscopic appendectomy Doing well Can discharge to home Discussed postoperative activity restrictions Should follow-up with Dr. Hernandez in about 2 weeks Subjective Postoperative day #2, status post laparoscopic appendectomy Feels better than yesterday Having less pain Tolerated regular diet Denies nausea and vomiting Has not passed bowels yet Physical Exam Gastrointestinal (Abdomen): Inspection/Auscultation: normal bowel sounds; abdomen not distended Percussion/Palpation: + abdomen tender (Minimal on right lower side) and abdomen soft Results & Data Vital Signs (Past 12 Hours) Vital Signs Temp Pulse Resp BP Pulse Ox 10/12/18 07:27 37.1 C 55 L 18 105/62 96 10/11/18 23:20 36.9 C 64 16 91/48 L 97 (1) Acute appendicitis Acute appendicitis type: unspecified acute appendicitis type Qualified Code(s): K35.80 - Unspecified acute appendicitis
--- NOTE | 2018-10-13 09:37 | Discharge Summary ---
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 Had some nausea and vomiting Fri/ . Seen and given antibiotics for presumed urinary infection. Pain persisted and localized to right lower quadrant, moderate intensity, worse with movement, no relieving factors except pain meds, associated with low grade fever to 100/ chills. Came to the ER and CT scan shows acute appendicitis. Last ate around 1:30 - did note anorexia over the last few days. No change in bowel habits. No similar symptoms in the past. Admission Exam (Per Admitting) Constitutional WD/WN, vitals as above Eyes PERRL, conjunctivae normal, anicteric sclerae Neck trachea midline Respiratory normal respiratory effort, lungs clear to auscultation Cardiovascular RRR, no murmur, no edema Gastrointestinal (Abdomen) Inspection/Auscultation: abdomen normal to inspection, + abdomen distended (mild) and normal bowel sounds Percussion/Palpation: + abdomen tender and abdomen soft; no guarding, no hernia and no abdominal mass Neurologic moves all extremities Psychiatric A+Ox3, euthymic affect Discharge Data Consultations 10/10/18 16:39 ED Decision to Admit Stat Procedures Performed Operation Date: 10/10/18 18:15 Actual Procedures p Laparoscopic Appendectomy(Not Applicable) - Erin Hernandez MD Hospital Course (1) Acute appendicitis: Postoperative day #2, status post laparoscopic appendectomy Doing well Can discharge to home Discussed postoperative activity restrictions Should follow-up with Dr. Hernandez in about 2 weeks Discharge Instructions Limitations on activity for 2 wks.
== END 2018-10-12 11:28 | disposition home or self-care (01) | DRG 343 ==
LOC: ED 13:55 → OR 18:23 → 3N 21:08